=== PATIENT | male | born 2000 | race Caucasian/White ===

== ENCOUNTER 2022-02-09 09:06 | Outpatient (CLI) | payer BC, SELFPAY ==
[2022-02-09 10:09] LABS: Albumin* 4.9 g/dL (3.3-5.0); Chloride* 98 mmol/L (96-114); Potassium* 4.1 mmol/L (3.6-5.1); Sodium* 137 mmol/L (135-149)
[2022-02-09 10:11] LABS: Carbon Dioxide* 27 mmol/L (20-32); Cholesterol* 190 mg/dL (90-199); Creatinine* 0.9 mg/dL (0.5-1.5); Estimated Glomerular Filt Rate 125 ml/min
[2022-02-09 10:12] LABS: Alanine Aminotransferase* 162 U/L (4-50); Alkaline Phosphatase* 83 U/L (40-150); Aspartate Amino Transferase* 90 U/L (12-35); Bilirubin Total* 0.7 mg/dL (0.1-1.5); Blood Urea Nitrogen* 12 mg/dL (5-24); Calcium* 9.6 mg/dL (8.4-10.6); Glucose* 146 mg/dL (60-115); HDL Cholesterol* 46 mg/dL (>=40); LDL Cholesterol Calculated 92 mg/dL (<100); Total Protein* 7.7 g/dL (6.0-8.3); Triglycerides* 261 mg/dL (40-149)
[2022-02-09 12:49] LABS: Microalbumin Urine 10 mg/dL
[2022-02-09 13:32] LABS: Creatinine Urine 767 mg/dL; Microalbumin Creatinine Ratio 13 mg/g (0-30)
== END 2022-02-09 09:07 | disposition home or self-care (01) ==
PROVIDERS: Visit Provider Family Medicine
DX: E11.9 Type 2 diabetes mellitus without complications (principal); E66.9 Obesity, unspecified; J45.20 Mild intermittent asthma, uncomplicated
CPT/HCPCS: 80053; 80061; 82043; 82570

== ENCOUNTER 2023-12-21 13:39 | Outpatient (CLI) | payer BC, SELFPAY ==
--- OUTSIDE RECORDS SUMMARY | 2023-12-21 13:43 | XMS_ITS | Clinical Summary ---
Author Organization [facility] [facility] Address [place], [place] [address] Care Team Providers Care Packing Supervisor Name Role Phone None, Primary Care Provider Unavailabl e Allergies No known active allergies Medications Medication Sig Dispensed Refills Start Date End Date Status metFORMIN (GLUCOPHAGE) 1,000 mg tablet Take 1,000 mg by mouth two times daily with meals. 03/12/2022 Active Social History Tobacco Use Types Packs/Day Years Used Date Smoking Tobacco: Never Smokeless Tobacco: Never Alcohol Use Standard Drinks/Week Comments Yes 1 (1 standard drink = 0.6 oz pur e alcohol) Sex and Gender Information Value Date Recorded Sex Assigned at Not on file Gender Identity Not on file Sexual Orientation Not on file Obstetrics History Last Filed Vital Signs Vital Sign Reading Time Taken Comments Blood Pressure 130/71 05/06/2022 1:16 PM [facility] Pulse 117 05/06/2022 2:07 PM [facility] Rechecked in room Temperature 36.6 ??C (97.8 ??F) 05/06/2022 2 :05 PM [facility] Respiratory Rate 18 05/06/2022 1:16 PM [facility] Oxygen Saturation 96% 05/06/2022 1:1 6 PM [facility] Inhaled Oxygen Concentration - - Weight 102.1 kg (225 lb) 05/06/2022 2:0 7 PM [facility] Height - - Body Mass Index - - Plan of Treatment Health Maintenance Due Date Last Done Comments Tdap 2012 Depression screening for age 12+ 2013 HIV for age 15-65 2016 HPV series for age 9-26 (1 - Male 3-dose series) 2016 BMI (ht and wt on same day) for age 18+ 2019 Hepatitis C screening for ag e 18-79 2019 Tetanus booster 2021 COVID-19 vaccine series ( season) 2023 Influenza for age 9-49 02/26/2024 Pneumococcal series for age 6-64 Aged Out No longer eligible based on patient's age to complete this topic Care Teams Packing Supervisor Relationship Specialty Start Date End Date None, Dr Batista PCP - General 01/04/06
== END 2023-12-21 13:40 | disposition home or self-care (01) ==
PROVIDERS: PCP Family Medicine; Visit Provider Family Medicine
DX: Z00.00 Encounter for general adult medical examination without abnormal findings (principal); E11.9 Type 2 diabetes mellitus without complications; E66.9 Obesity, unspecified; Z13.6 Encounter for screening for cardiovascular disorders
CPT/HCPCS: 80053; 80061; 82043; 82570